=== PATIENT | female | born 1990 | race Two or more races ===

== ENCOUNTER 2019-01-26 20:40 | Outpatient (CLI) | payer OTHER ==
[2019-01-26] MEDS ORDERED: LOVENOX40 MG/0.4 SUBCUTANEO (23:31)
== END 2019-01-27 08:44 | disposition home or self-care (01) ==
LOC: OBS/DEL 20:40
DX: O62.2 Other uterine inertia (principal); Z34.02 Encounter for supervision of normal first pregnancy, second trimester

== ENCOUNTER 2019-02-16 07:11 | Outpatient (CLI) | payer OTHER ==
[~2019-02-16 07:11] MED LIST: LOVENOX40 MG/0.4 SUBCUTANEO
== END 2019-02-16 07:59 | disposition home or self-care (01) ==
LOC: NST 07:11
DX: Z34.83 Encounter for supervision of other normal pregnancy, third trimester (principal)

== ENCOUNTER 2019-03-31 11:26 | Inpatient (IN) | payer OTHER ==
[~2019-03-31] VITALS: Ht 152.4 cm; Wt 66.7 kg
[2019-04-28] MEDS ORDERED: INTEGRA F CAPS1 EACH PO (07:58)
== END 2019-04-29 11:24 | disposition home or self-care (01) | DRG 807 ==
LOC: OB/GYN 04-24 14:45 → LDR 04-27 00:18 → OB/GYN 04-27 00:32 → LDR 04-27 01:27 → OB/GYN 04-27 21:31
PROVIDERS: ADMIT Obstetrics & Gynecology Maternal & Fetal Medicine
PROC: 10E0XZZ Delivery of Products of Conception, External Approach (ICD-10-PCS; principal; 2019-04-27)
PROC: 0KQM0ZZ Repair Perineum Muscle, Open Approach (ICD-10-PCS; 2019-04-27)
PROC: 4A1HXCZ Monitoring of Products of Conception, Cardiac Rate, External Approach (ICD-10-PCS; 2019-04-27)
DX: O70.1 Second degree perineal laceration during delivery (principal); Z37.0 Single live birth; Z3A.40 40 weeks gestation of pregnancy

== ENCOUNTER 2019-04-21 09:35 | Outpatient (CLI) | payer OTHER | END 2019-04-21 10:59 | disposition home or self-care (01) | LOC: NST 09:35 | DX: Z34.83 Encounter for supervision of other normal pregnancy, third trimester (principal) ==

== ENCOUNTER 2019-04-26 13:03 | Outpatient (CLI) | payer OTHER | END 2019-04-26 14:57 | disposition home or self-care (01) | LOC: NST 13:03 | DX: Z34.83 Encounter for supervision of other normal pregnancy, third trimester (principal) ==

== ENCOUNTER 2022-08-21 11:06 | Outpatient (CLI) | payer OTHER ==
[~2022-08-21 11:06] MED LIST changes: +INTEGRA F CAPS1 EACH PO
== END 2022-08-21 12:48 | disposition home or self-care (01) ==
LOC: NST 11:06
PROVIDERS: ATTEND Obstetrics & Gynecology
DX: Z34.83 Encounter for supervision of other normal pregnancy, third trimester (principal)

== ENCOUNTER 2022-09-01 10:01 | Outpatient (CLI) | payer OTHER | END 2022-09-01 12:27 | disposition home or self-care (01) | LOC: NST 10:01 | PROVIDERS: ATTEND Obstetrics & Gynecology Gynecology | DX: Z34.83 Encounter for supervision of other normal pregnancy, third trimester (principal) ==

== ENCOUNTER 2022-09-09 06:33 | Inpatient (IN) | payer OTHER ==
[~2022-09-09] VITALS: Ht 152.4 cm; Wt 69.4 kg
[2022-09-09] MEDS ORDERED: PRENATAL TABLE1 EAC1 PO (07:01)
[2022-09-09] MEDS ORDERED: IRON236 MG PO (07:01)
== END 2022-09-11 13:51 | disposition home or self-care (01) | DRG 807 ==
LOC: LDR 06:33 → OB/GYN 20:12 → LDR 09-10 15:24 → OB/GYN 09-11 13:51
PROVIDERS: ADMIT Obstetrics & Gynecology; ATTEND Obstetrics & Gynecology
PROC: 10E0XZZ Delivery of Products of Conception, External Approach (ICD-10-PCS; principal; 2022-09-09)
PROC: 0KQM0ZZ Repair Perineum Muscle, Open Approach (ICD-10-PCS; 2022-09-09)
PROC: 4A1HXCZ Monitoring of Products of Conception, Cardiac Rate, External Approach (ICD-10-PCS; 2022-09-09)
DX: O70.1 Second degree perineal laceration during delivery (principal); Z37.0 Single live birth; Z3A.39 39 weeks gestation of pregnancy; Z20.822 Contact with and (suspected) exposure to COVID-19